=== PATIENT | male | born 1950 | race Caucasian/White ===

== ENCOUNTER 2019-02-01 05:51 | Day surgery (SDC) | payer BC ==
[2019-02-01] MEDS ORDERED: LACTATED RINGERS 1,000 ML IV ONE (06:55)
[2019-02-01] MEDS ORDERED: fentaNYL 250 MCG/5 ML VIAL IVP ONE (08:10)
[2019-02-01] MEDS ORDERED: MIDAZOLAM 2 MG/2 ML VIAL IVP ONE (08:10)
[2019-02-01 08:25] VITALS: BP 124/98
== END 2019-02-01 05:52 | disposition home or self-care (01) ==
LOC: SDS 05:51
PROVIDERS: ATTEND Surgery
PROC: 0DJD8ZZ Inspection of Lower Intestinal Tract, Via Natural or Artificial Opening Endoscopic (ICD-10-PCS; principal; 2019-02-01 07:30)
DX: Z12.11 Encounter for screening for malignant neoplasm of colon (principal); Z79.01 Long term (current) use of anticoagulants; I48.91 Unspecified atrial fibrillation; G25.0 Essential tremor; Z87.891 Personal history of nicotine dependence; K64.8 Other hemorrhoids
CPT/HCPCS: G0121; J3010; J7120

== ENCOUNTER → 2019-06-07 | Outpatient (CLI) | payer MEDICARE, OTHER ==
[2019-06-07 12:34] LABS: BASOPHILS % (AUTO) 0.6 %; EOSINOPHILS # (AUTO) 0.2 10^3/uL (0.0-0.7); EOSINOPHILS % (AUTO) 4.4 %; HGB - HEMOGLOBIN 14.7 g/dL (14.0-18.0); LYMPHOCYTES # (AUTO) 1.2 10^3/uL (1.5-3.5); LYMPHOCYTES % (AUTO) 36.4 %; MEAN CORPUSCULAR HEMOGLOBIN 29.2 pg (27.0-31.0); MEAN CORPUSCULAR HGB CONC 33.1 g/dL (32.0-36.0); MEAN CORPUSCULAR VOLUME 88.3 fL (80.0-94.0); MEAN PLATELET VOLUME 11.3 fL (7.4-11.4); MONOCYTES # (AUTO) 0.4 10^3/uL (0.0-1.0); MONOCYTES % (AUTO) 11.2 %; NEUTROPHILS # (AUTO) 1.6 10^3/uL (1.5-6.6); NEUTROPHILS % (AUTO) 47.4 %; PLT - PLATELET COUNT 104 10^3/uL (130-450); RED BLOOD COUNT 5.03 10^6/uL (4.70-6.10); RED CELL DISTRIBUTION WIDTH 14.4 % (12.0-15.0); WHITE BLOOD COUNT 3.4 x10^3/uL (4.8-10.8)
[2019-06-07 13:07] LABS: ALBUMIN 4.1 g/dL (3.2-5.5); ALBUMIN/GLOBULIN RATIO 1.4 (1.0-2.2); ALKALINE PHOSPHATASE 57 IU/L (42-121); ALT ALANINE AMINOTRANSFERASE 24 IU/L (10-60); AST ASPARTATE AMINOTRANSFERASE 22 IU/L (10-42); BUN - BLOOD UREA NITROGEN 19 mg/dL (6-20); CARBON DIOXIDE - CO2 22 mmol/L (21-32); CHLORIDE 112 mmol/L (101-111); CHOL/HDL RATIO 4.2 (<5.0); CHOLESTEROL 140 mg/dL; CREATININE 1.2 mg/dL (0.6-1.2); GFR - MDRD 60 (>89); GLUCOSE 120 mg/dL (70-100); HDL CHOLESTEROL 33 mg/dL; LDL CHOLESTEROL,CALCULATED 78 mg/dL; LDL/HDL RATIO 2.4 (<3.6); SODIUM 142 mmol/L (135-145); VLDL CHOLESTEROL 29 mg/dL
[2019-06-07 13:14] LABS: CREATININE,URINE 134.8 mg/dL; MICROALBUM/CREATININE RATIO,UR 6.7 ug/mg (<30.0); MICROALBUMIN,URINE 0.9 mg/dL (0-300.0)
[2019-06-07 13:26] LABS: HB2 TOTAL 15.9 g/dL; HEMOGLOBIN A1C 0.62 g/dL; HEMOGLOBIN A1C % 5.7 % (4.6-6.2)
== END ==
LOC: LAB.WCP 08:00
PROVIDERS: ATTEND Family Medicine
DX: E11.9 Type 2 diabetes mellitus without complications (principal); E78.5 Hyperlipidemia, unspecified; Z12.5 Encounter for screening for malignant neoplasm of prostate
CPT/HCPCS: 36415; 80061; 82043; 82570; 83036; G0103; 80053; 83721; 84153; 84443; 85025

== ENCOUNTER 2020-11-27 08:29 | Outpatient (CLI) | payer MEDICARE, OTHER ==
[2020-11-27 11:50] LABS: BASOPHILS % (AUTO) 0.7 %; EOSINOPHILS # (AUTO) 0.2 10^3/uL (0.0-0.7); EOSINOPHILS % (AUTO) 5.1 %; HGB - HEMOGLOBIN 15.8 g/dL (14.0-18.0); LYMPHOCYTES # (AUTO) 1.1 10^3/uL (1.5-3.5); LYMPHOCYTES % (AUTO) 24.6 %; MEAN CORPUSCULAR HEMOGLOBIN 29.6 pg (27.0-31.0); MEAN CORPUSCULAR HGB CONC 33.8 g/dL (32.0-36.0); MEAN CORPUSCULAR VOLUME 87.6 fL (80.0-94.0); MEAN PLATELET VOLUME 11.3 fL (7.4-11.4); MONOCYTES # (AUTO) 0.6 10^3/uL (0.0-1.0); MONOCYTES % (AUTO) 12.5 %; NEUTROPHILS # (AUTO) 2.6 10^3/uL (1.5-6.6); NEUTROPHILS % (AUTO) 56.7 %; PLT - PLATELET COUNT 132 10^3/uL (130-450); RED BLOOD COUNT 5.33 10^6/uL (4.70-6.10); RED CELL DISTRIBUTION WIDTH 13.2 % (12.0-15.0); WHITE BLOOD COUNT 4.6 x10^3/uL (4.8-10.8)
[2020-11-27 12:30] LABS: ALBUMIN 4.2 g/dL (3.2-5.5); ALBUMIN/GLOBULIN RATIO 1.4 (1.0-2.2); ALKALINE PHOSPHATASE 54 IU/L (42-121); ALT ALANINE AMINOTRANSFERASE 32 IU/L (10-60); AST ASPARTATE AMINOTRANSFERASE 22 IU/L (10-42); BILIRUBIN,TOTAL 1.1 mg/dL (0.2-1.0); BUN - BLOOD UREA NITROGEN 18 mg/dL (6-20); CALCIUM 8.9 mg/dL (8.5-10.3); CARBON DIOXIDE - CO2 26 mmol/L (21-32); CHLORIDE 104 mmol/L (101-111); CHOL/HDL RATIO 4.7 (<5.0); CHOLESTEROL 156 mg/dL; CREATININE 1.3 mg/dL (0.6-1.2); GLUCOSE 190 mg/dL (70-100); HDL CHOLESTEROL 33 mg/dL; LDL CHOLESTEROL,CALCULATED 74 mg/dL; LDL/HDL RATIO 2.2 (<3.6); SODIUM 135 mmol/L (135-145); TOTAL PROTEIN 7.2 g/dL (6.7-8.2); VLDL CHOLESTEROL 49 mg/dL
[2020-11-27 12:31] LABS: HEMOGLOBIN A1c% 6.9 % (4.27-6.07)
[2020-11-27 12:41] LABS: CREATININE,URINE 140.8 mg/dL; MICROALBUM/CREATININE RATIO,UR 24.1 ug/mg (<30.0); MICROALBUMIN,URINE 3.4 mg/dL (0-300.0)
== END 2020-11-27 23:59 | disposition home or self-care (01) ==
LOC: LAB.WCP 08:29
PROVIDERS: ATTEND Physician Assistant Medical
DX: I48.91 Unspecified atrial fibrillation (principal); E11.9 Type 2 diabetes mellitus without complications; E78.5 Hyperlipidemia, unspecified; Z12.5 Encounter for screening for malignant neoplasm of prostate
CPT/HCPCS: 36415; 80053; 80061; 82043; 82570; 83036; 84443; 85025; G0103; 83721; 84153

== ENCOUNTER 2021-01-26 08:00 | Outpatient (CLI) | payer MEDICARE, OTHER ==
[2021-01-26 18:27] LABS: CALCIUM 9.1 mg/dL (8.5-10.3); CREATININE 1.3 mg/dL (0.6-1.2)
== END 2021-01-26 23:59 | disposition home or self-care (01) ==
LOC: LAB.WCP 08:00
PROVIDERS: ATTEND Physician Assistant Medical
DX: I42.0 Dilated cardiomyopathy (principal)
CPT/HCPCS: 36415; 80048

== ENCOUNTER 2021-03-09 09:00 | Outpatient (CLI) | payer MEDICARE, OTHER ==
[2021-03-09 13:12] LABS: BILIRUBIN,URINE NEGATIVE (NEGATIVE); GLUCOSE, URINE (UA) 100 mg/dL (NEGATIVE); KETONES,URINE (UA) NEGATIVE (NEGATIVE); LEUKOCYTE ESTERASE, URINE NEGATIVE (NEGATIVE); NITRITE,URINE NEGATIVE (NEGATIVE); OCCULT BLOOD,URINE TRACE-INTA (NEGATIVE); PH,URINE 5.5 PH (5.0-7.5); PROTEIN,URINE NEGATIVE (NEGATIVE); UROBILINOGEN,URINE 0.2 (NORMAL) E.U./dL (NORMAL)
[2021-03-09 13:13] LABS: CLARITY,URINE CLOUDY (CLEAR)
[2021-03-09 13:18] LABS: BACTERIA,URINE Rare /HPF (None Seen); SQUAMOUS EPITHELIAL CELL,UR MOD Squamous (<= Few); WBC,URINE 0-3 /HPF (0-3)
== END 2021-03-09 23:59 | disposition home or self-care (01) ==
LOC: LAB.R 09:00
PROVIDERS: ATTEND Physician Assistant Medical
DX: R31.9 Hematuria, unspecified (principal)
CPT/HCPCS: 81001; 81003; 87086

== ENCOUNTER 2021-03-09 10:32 | Outpatient (CLI) | payer MEDICARE, OTHER ==
--- NOTE | 2021-03-09 11:58 | CT Report ---
PROCEDURE: Abdomen/Pelvis WO INDICATIONS: HEMATURIA, LT FLANK PAIN TECHNIQUE: Noncontrast 5 mm thick sections acquired from the diaphragms to the symphysis. 5 mm coronal and sagi ttal reformats were then performed. For radiation dose reduction, the following was used: automated exposure control, adjustment of mA and/or kV according to patient size. COMPARISON: CT abdomen pelvis 09/16/2015. FINDINGS: Image quality: Excellent. ABDOMEN: Lung bases: There is minimal dependent atelectasis. Heart size is mildly enlarged. Solid organs: 2 small hypodense foci are redemonstrated within the right hepatic lobe which are too small to characterize but appear unchanged from the prior study and likely represent cysts. Multiple calcified gallstones are redemonstrated within the gallbladder. No associated wall thickening or willow cholecystic fluid. No intra or extrahepatic biliary ductal dilatation. No calcified common duct stone s. Pancreas is normal in contours. No adrenal nodules. The spleen is normal in size. There is an obstructing stone within the mid left ureter measuring up to 8 mm with attenuation values of approximately 500-600 Hounsfield units. There is associated mild to moderate left hydroureteronep hrosis with perinephric and periureteral fat stranding. No additional left renal stones. There is a s mall nonobstructing stone within the right kidney measuring up to 3 mm. No right hydronephrosis. Righ t ureter is nondistended. Peritoneum and bowel: Unenhanced bowel loops demonstrate normal wall thickness and caliber. The appe ndix is normal in appearance. There is colonic diverticulosis without acute diverticulitis. No free f luid or air. Nodes and vessels: No retroperitoneal or mesenteric adenopathy by size criteria. Aorta and inferior vena cava are normal in caliber. Miscellaneous: No ventral hernias. PELVIS: Genitourinary: Bladder wall thickness is normal. No calcified bladder stones. Miscellaneous: No inguinal hernias or adenopathy. Bones: No suspicious bony lesions. There is mild facet arthropathy in the lower lumbar spine as well as mild multilevel degenerative disc disease. No vertebral body compression fractures. IMPRESSION: 1. Obstructing 8 mm urinary stone in the mid left ureter with associated mild to moderate left hydrou reteronephrosis. 2. Small additional nonobstructing right renal stone. No right hydronephrosis. 3. Colonic diverticulosis without acute diverticulitis. 4. Cholelithiasis without CT evidence of acute cholecystitis. Reviewed by: Kevin Millard MD on 03/09/2021 11:57 AM PDT Approved by: Kevin Millard MD on 03/09/2021 11:57 AM PDT Station ID: [id number]
== END 2021-03-09 10:33 | disposition home or self-care (01) ==
LOC: DI 10:32
PROVIDERS: ATTEND Physician Assistant Medical
DX: N20.1 Calculus of ureter (principal); K57.30 Diverticulosis of large intestine without perforation or abscess without bleeding; K80.20 Calculus of gallbladder without cholecystitis without obstruction; R31.9 Hematuria, unspecified
CPT/HCPCS: 81001

== ENCOUNTER 2021-05-30 08:00 | Outpatient (CLI) | payer MEDICARE, OTHER ==
[2021-05-30 12:19] LABS: ESTIMATED AVERAGE GLUCOSE 160 mg/dL (70-100); HEMOGLOBIN A1c% 7.2 % (4.27-6.07)
[2021-05-30 12:42] LABS: BUN - BLOOD UREA NITROGEN 22 mg/dL (6-20); CALCIUM 8.8 mg/dL (8.5-10.3); CARBON DIOXIDE - CO2 27 mmol/L (21-32); CHLORIDE 100 mmol/L (101-111); CHOLESTEROL 139 mg/dL; CREATININE 1.5 mg/dL (0.6-1.2); GFR - MDRD 46 (>89); GLUCOSE 179 mg/dL (70-100); HDL CHOLESTEROL 35 mg/dL; LDL CHOLESTEROL,CALCULATED 74 mg/dL; LDL/HDL RATIO 2.1 (<3.6); POTASSIUM 4.5 mmol/L (3.5-5.0); SODIUM 136 mmol/L (135-145); TRIGLYCERIDES 152 mg/dL; VLDL CHOLESTEROL 30 mg/dL
== END 2021-05-30 23:59 | disposition home or self-care (01) ==
LOC: LAB.WCP 08:00
PROVIDERS: ATTEND Physician Assistant Medical
DX: E11.9 Type 2 diabetes mellitus without complications (principal)
CPT/HCPCS: 36415; 80048; 80061; 83036; 83721

== ENCOUNTER 2021-11-27 10:22 | Outpatient (CLI) | payer MEDICARE, OTHER ==
--- NOTE | 2021-11-27 10:41 | XRAY Report ---
PROCEDURE: Chest 2 View X-Ray INDICATIONS: UPPER RESPIRATORY INFECTION TECHNIQUE: 2 view(s) of the chest. COMPARISON: None. FINDINGS: Surgical changes and devices: None. Lungs and pleura: No pleural effusions or pneumothorax. Lungs are clear. Mediastinum: Mediastinal contours are normal. Heart size is normal. Bones and chest wall: No suspicious bony abnormalities. Soft tissues appear unremarkable. IMPRESSION: Chest without acute cardiopulmonary abnormalities. No focal airspace disease. Reviewed by: Antelmo Joyce MD on 11/27/2021 10:40 AM [facility] Approved by: Antelmo Joyce MD on 11/27/2021 10:40 AM [facility] Station ID: [id number]
== END 2021-11-27 10:23 | disposition home or self-care (01) ==
LOC: DI.N 10:22
PROVIDERS: ATTEND Physician Assistant Medical
DX: J06.9 Acute upper respiratory infection, unspecified (principal)

== ENCOUNTER 2022-03-14 11:42 | Outpatient (CLI) | payer MEDICARE, OTHER ==
[2022-03-14 18:19] LABS: HCT - HEMATOCRIT 48.1 % (42.0-52.0); HGB - HEMOGLOBIN 16.3 g/dL (14.0-18.0)
[2022-03-14 18:32] LABS: ALBUMIN 4.4 g/dL (3.2-5.5); CREATININE 1.6 mg/dL (0.6-1.2); PHOSPHORUS 3.8 mg/dL (2.5-4.6); POTASSIUM 3.9 mmol/L (3.5-5.0); URIC ACID 6.9 mg/dL (2.6-7.2)
[2022-03-14 18:37] LABS: CREATININE,URINE 45.4 mg/dL
== END 2022-03-14 11:43 | disposition home or self-care (01) ==
LOC: LAB.N 11:42
PROVIDERS: ATTEND Internal Medicine Nephrology
DX: I12.9 Hypertensive chronic kidney disease with stage 1 through stage 4 chronic kidney disease, or unspecified chronic kidney disease (principal); E79.0 Hyperuricemia without signs of inflammatory arthritis and tophaceous disease; N18.31 Chronic kidney disease, stage 3a
CPT/HCPCS: 36415; 80069; 82043; 82570; 84550; 85014; 85018

== ENCOUNTER 2022-05-28 08:00 | Outpatient (CLI) | payer MEDICARE, OTHER | END 2022-05-28 23:59 | disposition home or self-care (01) | LOC: LAB.WCP 08:00 | PROVIDERS: ATTEND Physician Assistant Medical | DX: J06.9 Acute upper respiratory infection, unspecified (principal); Z20.822 Contact with and (suspected) exposure to COVID-19 ==

== ENCOUNTER 2022-06-30 12:04 | Emergency (ER) | payer MEDICARE, OTHER ==
--- NOTE | 2022-06-30 12:31 | ED Physician Documentation ---
PD HPI CHEST PAIN - Stated complaint Stated Complaint: CP - Chief complaint Chief Complaint: Cardiac - History obtained from History obtained from: Patient, Family - Additional information Additional information: 72-year-old gentleman with history of A. fib and CHF developed substernal chest pain radiating to the right while getting out of the shower around 11 AM. Lasted about 45 minutes. He had another short episode lasting only a couple of minutes on the way here. The pain he describes is somewhere between sharp and dull. No radiation to the back. While he had it he denied shortness of breath, sweatiness, or nausea. He has no history of coronary disease, had an angiogram maybe 20 years ago that was negative. No more recent stress testing or angiography. Review of Systems Ten Systems: 10 systems reviewed and negative Constitutional: reports: Reviewed and negative Cardiac: reports: Chest pain / pressure. denies: Palpitations Respiratory: denies: Dyspnea PD PAST MEDICAL HISTORY - Past Medical History Past Medical History: Yes Cardiovascular: Congestive heart failure, Hypertension, High cholesterol, Atrial fibrillation, Other Respiratory: None Endocrine/Autoimmune: Type 2 diabetes GI: None : None Musculoskeletal: Osteoarthritis Derm: Eczema - Past Surgical History Past Surgical History: Yes General: Colonoscopy - Present Medications Home Medications: Ambulatory Orders Medication Instructions Recorded Confirmed Atorvastatin Calcium [Lipitor] 10 mg PO QPM 06/23/15 06/30/22 Losartan [Cozaar] 50 mg PO BID 06/23/15 06/30/22 Metoprolol Succinate [Toprol Xl] 200 mg PO DAILY 06/23/15 06/30/22 Rivaroxaban [Xarelto] 20 mg PO DAILY 06/23/15 06/30/22 Glimepiride [Amaryl] 2 mg PO BID 06/30/22 06/30/22 Potassium Citrate [Potassium 30 meq PO DAILY 06/30/22 06/30/22 Citrate ER] Torsemide 20 mg PO DAILY 06/30/22 06/30/22 allopurinoL [Zyloprim] 100 mg PO DAILY 06/30/22 06/30/22 - Allergies Allergies/Adverse Reactions: Allergies Allergy/AdvReac Type Severity Reaction Status Date / Time lisinopril Allergy Mild Unknown Verified 06/30/22 12:18 calamine Allergy Hives Verified 06/30/22 12:18 - Social History Does the pt smoke?: No Smoking Status: Never smoker Does the pt drink ETOH?: Yes Does the pt have substance abuse?: No - Family History Family history: reports: Non contributory - Immunizations Immunizations are current?: Yes PD ED PE NORMAL - Vitals Vital signs reviewed: Yes - General General: Alert and oriented X 3, No acute distress - HEENT HEENT: PERRL, EOMI - Neck Neck: Supple, no meningeal sign, No bony TTP - Cardiac Cardiac: No murmur, Other (irregular irregular) - Respiratory Respiratory: No respiratory distress, Clear bilaterally - Abdomen Abdomen: Non tender - Derm Derm: Normal color - Extremities Extremities: Other (1-2+ pitting edema) - Neuro Neuro: Alert and oriented X 3, Normal speech Results - Vitals Vitals: Vital Signs - 24 hr 06/30/22 06/30/22 12:11 12:18 Temperature 36.5 C 36.5 C Heart Rate 79 79 Respiratory 20 20 Rate Blood Pressure 105/69 105/69 O2 Saturation 95 95 Oxygen O2 Source Room air - EKG (time done) 1211 Rate: Rate (enter#) (86) Rhythm: Atrial fibrillation Smyer: Normal QRS: Normal Ischemia: Q waves (inferior) Computer interpretation: Agree with computer - Labs Labs: Laboratory Tests 06/30/22 06/30/22 06/30/22 12:35 12:35 12:35 WBC 4.2 L RBC 5.14 Hgb 15.4 Hct 44.3 MCV 86.2 MCH 30.0 MCHC 34.8 RDW 13.2 Plt Count 117 L MPV 10.9 Neut # (Auto) 2.2 Lymph # (Auto) 1.2 L Winkler # (Auto) 0.6 Eos # (Auto) 0.2 Baso # (Auto) 0.0 Absolute Nucleated RBC 0.00 Nucleated RBC % 0.0 Sodium 135 Potassium 3.5 Chloride 97 L Carbon Dioxide 27 Anion Gap 11.0 BUN 28 H Creatinine 1.7 H Estimated GFR (MDRD) 40 L Glucose 229 H Calcium 9.1 Total Bilirubin 1.2 H AST 25 ALT 30 Alkaline Phosphatase 48 Troponin I High Sens 5.4 Total Protein 7.0 Albumin 4.0 Globulin 3.0 Albumin/Globulin Ratio 1.3 Lipase 54 H PD MEDICAL DECISION MAKING - ED course Complexity details: re-evaluated patient ED course: 72-year-old gentleman with resolved rest pain presents to the emergency department. He has a history of A. fib and CHF. No sign of ischemia on EKG and biomarkers negative here. I discussed the case by phone with Dr. Low, on-call for Dr. Hodges who reviewed his chart. His angiogram was actually a little more recent than the patient thought, in 2012 and his EF has improved with medical management since that time. Agrees with outpatient work-up and they will have the office contact the patient. Departure - Departure Disposition: 01 Home, Self Care Clinical Impression: Chest pain Qualifiers: Chest pain type: unspecified Qualified Code(s): R07.9 - Chest pain, unspecified Condition: Good Record reviewed to determine appropriate education?: Yes Instructions: ED Chest Pain Atypical Unkn Cause Comments: Today I discussed your case with Dr. Low on-call for Dr. Hodges who was able to review your chart with them as well. They will reach out to you this week to arrange for follow-up and probably a stress test or some other testing to evaluate for ischemic heart disease. Return for new or worsening symptoms. Return if chest pain recurs.
[2022-06-30 12:44] LABS: BASOPHILS % (AUTO) 0.5 %; EOSINOPHILS # (AUTO) 0.2 10^3/uL (0.0-0.7); EOSINOPHILS % (AUTO) 4.6 %; HCT - HEMATOCRIT 44.3 % (42.0-52.0); HGB - HEMOGLOBIN 15.4 g/dL (14.0-18.0); LYMPHOCYTES # (AUTO) 1.2 10^3/uL (1.5-3.5); LYMPHOCYTES % (AUTO) 28.6 %; MEAN CORPUSCULAR HGB CONC 34.8 g/dL (32.0-36.0); MEAN CORPUSCULAR VOLUME 86.2 fL (80.0-94.0); MEAN PLATELET VOLUME 10.9 fL (7.4-11.4); MONOCYTES # (AUTO) 0.6 10^3/uL (0.0-1.0); MONOCYTES % (AUTO) 13.9 %; NEUTROPHILS # (AUTO) 2.2 10^3/uL (1.5-6.6); NEUTROPHILS % (AUTO) 52.2 %; PLT - PLATELET COUNT 117 10^3/uL (130-450); RED BLOOD COUNT 5.14 10^6/uL (4.70-6.10); RED CELL DISTRIBUTION WIDTH 13.2 % (12.0-15.0); WHITE BLOOD COUNT 4.2 x10^3/uL (4.8-10.8)
--- NOTE | 2022-06-30 12:46 | XRAY Report ---
PROCEDURE: Chest 1 View X-Ray INDICATIONS: Chest Pain TECHNIQUE: One view of the chest was acquired. COMPARISON: 11/27/2021 FINDINGS: Surgical changes and devices: None. Lungs and pleura: No pleural effusions or pneumothorax. Lungs are clear. Mediastinum: Mediastinal contours appear normal. Heart size is normal. Bones and chest wall: No suspicious bony lesions. Overlying soft tissues appear unremarkable. IMPRESSION: No evidence acute pulmonary process. Reviewed by: Juliano Purcell MD on 06/30/2022 11:45 AM [facility] Approved by: Juliano Purcell MD on 06/30/2022 11:45 AM [facility] Station ID: [id number]
[2022-06-30 12:54] LABS: ALBUMIN/GLOBULIN RATIO 1.3 (1.0-2.2); BILIRUBIN,TOTAL 1.2 mg/dL (0.2-1.0); CALCIUM 9.1 mg/dL (8.5-10.3); CREATININE 1.7 mg/dL (0.6-1.2); POTASSIUM 3.5 mmol/L (3.5-5.0)
[2022-06-30 14:17] VITALS: BP 108/70
== END 2022-06-30 14:16 | disposition home or self-care (01) ==
LOC: ED 12:04
DX: R07.89 Other chest pain (principal); I11.0 Hypertensive heart disease with heart failure; I50.9 Heart failure, unspecified; E11.9 Type 2 diabetes mellitus without complications; Z79.01 Long term (current) use of anticoagulants; I48.91 Unspecified atrial fibrillation
CPT/HCPCS: 36415; 80053; 83690; 84484; 85025; 93005; 99283; 99284

== ENCOUNTER 2022-07-25 10:44 | Outpatient (CLI) | payer MEDICARE, OTHER ==
--- NOTE | 2022-07-25 12:26 | XRAY Report ---
PROCEDURE: Knee 3 View LT INDICATIONS: OSEOARTHRITIS,KNEES,BILAT TECHNIQUE: 3 views of the left knee(s) were acquired. COMPARISON: None. FINDINGS: Bones: No fractures or dislocations. No suspicious bony lesions. Moderate medial compartment joint space narrowing. Proximal fibular bony excrescence consistent with osteochondroma noted. Soft tissues: No joint effusion. No suspicious soft tissue calcifications. Sclerotic vascular calc ification IMPRESSION: Moderate osteoarthritis Fibular osteochondroma exostosis Calcific atherosclerosis Reviewed by: Phoenix Trujillo MD on 07/25/2022 11:24 AM [facility] Approved by: Phoenix Trujillo MD on 07/25/2022 11:24 AM [facility] Station ID: [id number]
== END 2022-07-25 10:45 | disposition home or self-care (01) ==
LOC: DI 10:44
PROVIDERS: ATTEND Physician Assistant Medical
DX: M17.0 Bilateral primary osteoarthritis of knee (principal); D16.22 Benign neoplasm of long bones of left lower limb; I70.90 Unspecified atherosclerosis

== ENCOUNTER 2022-08-29 09:38 | Outpatient (CLI) | payer MEDICARE, OTHER ==
[2022-08-29 12:23] LABS: ESTIMATED AVERAGE GLUCOSE 160 mg/dL (70-100); HEMOGLOBIN A1c% 7.2 % (4.27-6.07)
[2022-08-29 12:46] LABS: CALCIUM 9.2 mg/dL (8.5-10.3); CREATININE 1.5 mg/dL (0.6-1.2); POTASSIUM 4.3 mmol/L (3.5-5.0); URIC ACID 6.9 mg/dL (2.6-7.2)
== END 2022-08-29 09:39 | disposition home or self-care (01) ==
LOC: LAB.N 09:38
PROVIDERS: ATTEND Internal Medicine Cardiovascular Disease
DX: I12.9 Hypertensive chronic kidney disease with stage 1 through stage 4 chronic kidney disease, or unspecified chronic kidney disease (principal); E11.22 Type 2 diabetes mellitus with diabetic chronic kidney disease; N18.31 Chronic kidney disease, stage 3a; E79.0 Hyperuricemia without signs of inflammatory arthritis and tophaceous disease
CPT/HCPCS: 36415; 80048; 83036; 84550

== ENCOUNTER 2023-01-24 07:39 | Outpatient (CLI) | payer MEDICARE, OTHER ==
[2023-01-24 12:29] LABS: ALBUMIN 4.3 g/dL (3.2-5.5); ALBUMIN/GLOBULIN RATIO 1.4 (1.0-2.2); ALKALINE PHOSPHATASE 58 IU/L (42-121); ALT ALANINE AMINOTRANSFERASE 39 IU/L (10-60); AST ASPARTATE AMINOTRANSFERASE 28 IU/L (10-42); BILIRUBIN,TOTAL 1.2 mg/dL (0.2-1.0); BUN - BLOOD UREA NITROGEN 27 mg/dL (6-20); CALCIUM 9.6 mg/dL (8.5-10.3); CARBON DIOXIDE - CO2 31 mmol/L (21-32); CHLORIDE 99 mmol/L (101-111); CHOL/HDL RATIO 4.5 (<5.0); CHOLESTEROL 144 mg/dL; CREATININE 1.7 mg/dL (0.6-1.2); GFR - MDRD 40 (>89); GLUCOSE 206 mg/dL (70-100); HDL CHOLESTEROL 32 mg/dL; LDL CHOLESTEROL,CALCULATED 60 mg/dL; LDL/HDL RATIO 1.9 (<3.6); POTASSIUM 4.3 mmol/L (3.5-5.0); SODIUM 136 mmol/L (135-145); TOTAL PROTEIN 7.4 g/dL (6.7-8.2); TRIGLYCERIDES 259 mg/dL; VLDL CHOLESTEROL 52 mg/dL
[2023-01-24 13:15] LABS: ESTIMATED AVERAGE GLUCOSE 183 mg/dL (70-100)
== END 2023-01-24 07:40 | disposition home or self-care (01) ==
LOC: LAB.N 07:39
PROVIDERS: ATTEND Physician Assistant Medical
DX: E11.9 Type 2 diabetes mellitus without complications (principal); E78.5 Hyperlipidemia, unspecified
CPT/HCPCS: 36415; 80053; 80061; 83036; 83721

== ENCOUNTER 2023-03-06 08:22 | Outpatient (CLI) | payer MEDICARE, OTHER ==
[2023-03-06 12:06] LABS: CALCIUM 8.6 mg/dL (8.5-10.3); CREATININE 1.3 mg/dL (0.6-1.2); POTASSIUM 4.1 mmol/L (3.5-5.0)
== END 2023-03-06 08:23 | disposition home or self-care (01) ==
LOC: LAB.N 08:22
PROVIDERS: ATTEND Internal Medicine Nephrology
DX: I12.9 Hypertensive chronic kidney disease with stage 1 through stage 4 chronic kidney disease, or unspecified chronic kidney disease (principal); E11.22 Type 2 diabetes mellitus with diabetic chronic kidney disease; N18.31 Chronic kidney disease, stage 3a
CPT/HCPCS: 36415; 80048

== ENCOUNTER 2023-05-07 08:16 | Outpatient (CLI) | payer MEDICARE, OTHER ==
[2023-05-07 11:49] LABS: CREATININE 1.4 mg/dL (0.6-1.2); POTASSIUM 3.6 mmol/L (3.5-5.0)
[2023-05-07 11:52] LABS: ESTIMATED AVERAGE GLUCOSE 128 mg/dL (70-100); HEMOGLOBIN A1c% 6.1 % (4.27-6.07)
== END 2023-05-07 08:17 | disposition home or self-care (01) ==
LOC: LAB.N 08:16
PROVIDERS: ATTEND Physician Assistant Medical
DX: E11.9 Type 2 diabetes mellitus without complications (principal)
CPT/HCPCS: 36415; 80048; 83036

== ENCOUNTER 2023-09-04 08:00 | Outpatient (CLI) | payer MEDICARE, OTHER ==
[2023-09-04 17:54] LABS: ALBUMIN 4.4 g/dL (3.2-5.5); ALBUMIN/GLOBULIN RATIO 1.4 (1.0-2.2); ALKALINE PHOSPHATASE 64 IU/L (42-121); ALT ALANINE AMINOTRANSFERASE 39 IU/L (10-60); AST ASPARTATE AMINOTRANSFERASE 31 IU/L (10-42); BILIRUBIN,TOTAL 0.6 mg/dL (0.2-1.0); BUN - BLOOD UREA NITROGEN 30 mg/dL (6-20); CALCIUM 9.6 mg/dL (8.5-10.3); CARBON DIOXIDE - CO2 33 mmol/L (21-32); CHLORIDE 98 mmol/L (101-111); CHOL/HDL RATIO 5.6 (<5.0); CHOLESTEROL 209 mg/dL; CREATININE 1.4 mg/dL (0.6-1.3); GFR - MDRD 50 (>89); GLUCOSE 165 mg/dL (74-104); HDL CHOLESTEROL 37 mg/dL; LDL CHOLESTEROL,CALCULATED 108 mg/dL; LDL/HDL RATIO 2.9 (<3.6); SODIUM 137 mmol/L (135-145); TOTAL PROTEIN 7.6 g/dL (6.4-8.9); TRIGLYCERIDES 319 mg/dL (48-352); VLDL CHOLESTEROL 64 mg/dL
[2023-09-04 19:09] LABS: ESTIMATED AVERAGE GLUCOSE 117 mg/dL (70-100); HEMOGLOBIN A1c% 5.7 % (4.27-6.07)
== END 2023-09-04 23:59 | disposition home or self-care (01) ==
LOC: LAB.N 08:00
PROVIDERS: ATTEND Physician Assistant Medical
DX: E11.9 Type 2 diabetes mellitus without complications (principal)
CPT/HCPCS: 36415; 80053; 80061; 83036; 83721

== ENCOUNTER 2024-02-02 11:06 | Outpatient (CLI) | payer MEDICARE, OTHER ==
[2024-02-02 19:22] LABS: ALBUMIN 4.1 g/dL (3.2-5.5); ALBUMIN/GLOBULIN RATIO 1.6 (1.0-2.2); ALKALINE PHOSPHATASE 58 IU/L (42-121); ALT ALANINE AMINOTRANSFERASE 25 IU/L (10-60); AST ASPARTATE AMINOTRANSFERASE 24 IU/L (10-42); BILIRUBIN,TOTAL 0.8 mg/dL (0.2-1.0); BUN - BLOOD UREA NITROGEN 19 mg/dL (6-20); CALCIUM 9.5 mg/dL (8.5-10.3); CARBON DIOXIDE - CO2 27 mmol/L (21-32); CHLORIDE 107 mmol/L (101-111); CHOL/HDL RATIO 3.5 (<5.0); CHOLESTEROL 145 mg/dL; CREATININE 1.2 mg/dL (0.6-1.3); GFR - MDRD 60 (>89); GLUCOSE 125 mg/dL (74-104); HDL CHOLESTEROL 42 mg/dL; LDL CHOLESTEROL,CALCULATED 65 mg/dL; LDL/HDL RATIO 1.5 (<3.6); POTASSIUM 4.2 mmol/L (3.5-4.5); SODIUM 139 mmol/L (135-145); TOTAL PROTEIN 6.7 g/dL (6.4-8.9); TRIGLYCERIDES 190 mg/dL (48-352); VLDL CHOLESTEROL 38 mg/dL
[2024-02-02 20:58] LABS: ESTIMATED AVERAGE GLUCOSE 108 mg/dL (70-100); HEMOGLOBIN A1c% 5.4 % (4.27-6.07)
== END 2024-02-02 11:07 | disposition home or self-care (01) ==
LOC: LAB.N 11:06
PROVIDERS: ATTEND Physician Assistant Medical
DX: E11.9 Type 2 diabetes mellitus without complications (principal); Z12.5 Encounter for screening for malignant neoplasm of prostate
CPT/HCPCS: 36415; 80053; 80061; 83036; G0103; 83721; 84153

== ENCOUNTER 2024-02-05 09:57 | Outpatient (CLI) | payer MEDICARE, OTHER ==
--- NOTE | 2024-02-05 16:52 | XRAY Report ---
PROCEDURE: Chest 2V INDICATIONS: WHEEZING TECHNIQUE: 2 views of the chest were acquired. COMPARISON: Chest x-ray 06/30/2022 FINDINGS: Surgical changes and devices: None. Lungs and pleura: No pleural effusions or pneumothorax. Lungs are clear. Mediastinum: Mediastinal contours appear normal. Heart size is mildly prominent. Bones and chest wall: No suspicious bony lesions. Overlying soft tissues appear unremarkable. IMPRESSION: No acute cardiopulmonary process. Reviewed by: Estelle Larios MD on 02/05/2024 4:[address] [facility] Approved by: Estelle Larios MD on 02/05/2024 4:[address] [facility] Station ID: [id number]
== END 2024-02-05 09:58 | disposition home or self-care (01) ==
LOC: DI 09:57
PROVIDERS: ATTEND Physician Assistant Medical
DX: R06.2 Wheezing (principal)

== ENCOUNTER 2024-06-17 12:58 | Outpatient (CLI) | payer MEDICARE, OTHER ==
--- NOTE | 2024-06-17 15:02 | XRAY Report ---
PROCEDURE: Chest 2V INDICATIONS: CAD TECHNIQUE: 2 views of the chest were acquired. COMPARISON: 02/05/2024. FINDINGS: Surgical changes and devices: None. Lungs and pleura: No pleural effusions or pneumothorax. Lungs are clear. Mediastinum: Mediastinal contours appear normal. Heart size is prominent, stable. Bones and chest wall: No suspicious bony lesions. Overlying soft tissues appear unremarkable. IMPRESSION: No acute cardiopulmonary process. Reviewed by: Pete Wills MD on 06/17/2024 3:00 PM PDT Approved by: Pete Wills MD on 06/17/2024 3:00 PM PDT Station ID: [id number]
== END 2024-06-17 12:59 | disposition home or self-care (01) ==
LOC: DI 12:58
PROVIDERS: ATTEND Internal Medicine Cardiovascular Disease
DX: I25.10 Atherosclerotic heart disease of native coronary artery without angina pectoris (principal); I48.20 Chronic atrial fibrillation, unspecified; I34.0 Nonrheumatic mitral (valve) insufficiency

== ENCOUNTER 2024-08-04 08:41 | Outpatient (CLI) | payer MEDICARE, OTHER ==
[2024-08-04 12:45] LABS: ALBUMIN 3.8 g/dL (3.2-5.5); ALBUMIN/GLOBULIN RATIO 1.5 (1.0-2.2); ALKALINE PHOSPHATASE 55 IU/L (42-121); ALT ALANINE AMINOTRANSFERASE 28 IU/L (10-60); AST ASPARTATE AMINOTRANSFERASE 21 IU/L (10-42); BILIRUBIN,TOTAL 0.9 mg/dL (0.2-1.0); BUN - BLOOD UREA NITROGEN 20 mg/dL (6-20); CARBON DIOXIDE - CO2 28 mmol/L (21-32); CHLORIDE 107 mmol/L (101-111); CHOL/HDL RATIO 3.5 (<5.0); CHOLESTEROL 117 mg/dL; CREATININE 1.4 mg/dL (0.6-1.3); GFR - MDRD 50 (>89); GLUCOSE 143 mg/dL (74-104); HDL CHOLESTEROL 33 mg/dL; LDL CHOLESTEROL,CALCULATED 50 mg/dL; LDL/HDL RATIO 1.5 (<3.6); POTASSIUM 4.4 mmol/L (3.5-4.5); SODIUM 140 mmol/L (135-145); TOTAL PROTEIN 6.3 g/dL (6.4-8.9); TRIGLYCERIDES 170 mg/dL; VLDL CHOLESTEROL 34 mg/dL
[2024-08-04 13:14] LABS: ESTIMATED AVERAGE GLUCOSE 123 mg/dL (70-100); HEMOGLOBIN A1c% 5.9 % (4.27-6.07)
== END 2024-08-04 08:42 | disposition home or self-care (01) ==
LOC: LAB.N 08:41
PROVIDERS: ATTEND Physician Assistant Medical
DX: E11.9 Type 2 diabetes mellitus without complications (principal)
CPT/HCPCS: 36415; 80053; 80061; 83036; 83721